=== PATIENT | male | born 1990 | race Caucasian/White ===

== ENCOUNTER 2018-05-08 16:16 | Emergency (ER) | payer OTHER ==
[2018-05-08 16:32] VITALS: BP 134/79
--- NOTE | 2018-05-08 16:53 | ED Physician Documentation ---
PD HPI LOWER EXT INJURY - Stated complaint Stated Complaint: HIP PX - Chief complaint Chief Complaint: Ext Problem - History obtained from History obtained from: Patient - History of Present Illness PD HPI LOW EXT INJURY LOCATION: Other (The last 3-6 months he has had pain of the right lateral hip that is worse with certain motions and after exercising. It is never debilitating. He denies weakness, numbness, or tingling in the legs or saddle area.) Review of Systems Constitutional: denies: Fever, Chills Nose: denies: Rhinorrhea / runny nose, Congestion Cardiac: denies: Chest pain / pressure, Palpitations Respiratory: denies: Dyspnea, Cough PD PAST MEDICAL HISTORY - Past Medical History Past Medical History: Yes HEENT: Chronic vision loss - Past Surgical History Past Surgical History: Yes - Present Medications Home Medications: Ambulatory Orders Medication Instructions Recorded Confirmed No Known Home Medications [No 05/08/18 05/08/18 Known Home Medications] - Allergies Allergies/Adverse Reactions: Allergies Allergy/AdvReac Type Severity Reaction Status Date / Time No Known Drug Allergies Allergy Verified 05/08/18 16:32 - Social History Does the pt smoke?: No Smoking Status: Never smoker Does the pt drink ETOH?: No Does the pt have substance abuse?: No - Immunizations Immunizations are current?: Yes - POLST Patient has POLST: No PD ED PE NORMAL - Vitals Vital signs reviewed: Yes - General General: Alert and oriented X 3, No acute distress - Extremities Extremities: Other (He is tender over the iliotibial band on the right side and also lumbar area. He has no pain with internal or external rotation of the hip but does have pain with iliotibial band stretching maneuvers. The patient has equal and normal Achilles and patellar reflexes bilaterally. Normal sensation in all areas of the legs. Patient denies saddle anesthesia. Normal strength in flexion-extension at the ankles, knees, and flexion of the hips.) - Neuro Neuro: Alert and oriented X 3, Normal speech Results - Vitals Vitals: Vital Signs - 24 hr 05/08/18 16:28 Temperature 36.4 C L Heart Rate 63 Respiratory 14 Rate Blood Pressure 134/79 H O2 Saturation 96 Oxygen O2 Source Room air PD MEDICAL DECISION MAKING - ED course ED course: He appears to have iliotibial band syndrome and was given stretching and conservative therapy to do and follow-up was advised. - Sepsis Event Vital Signs: Vital Signs - 24 hr 05/08/18 16:28 Temperature 36.4 C L Heart Rate 63 Respiratory 14 Rate Blood Pressure 134/79 H O2 Saturation 96 Oxygen O2 Source Room air Departure - Departure Disposition: 01 Home, Self Care Clinical Impression: Iliotibial band syndrome of right side Condition: Good Record reviewed to determine appropriate education?: Yes Instructions: Iliotibial Band Stretch, IT Band Syndrome Tx Comments: Follow-up with your physician in a week if not better with the stretches as shown. Ibuprofen as needed for pain.
== END 2018-05-08 16:54 | disposition home or self-care (01) ==
LOC: ED 16:16
DX: M76.31 Iliotibial band syndrome, right leg (principal)
CPT/HCPCS: 99282

== ENCOUNTER 2018-12-03 22:00 | Emergency (ER) | payer OTHER ==
--- NOTE | 2018-12-03 23:56 | ED Physician Documentation ---
PD HPI SKIN - Stated complaint Stated Complaint: RASH - Chief complaint Chief Complaint: Wound - History obtained from History obtained from: Patient - History of Present Illness Timing - onset: How many weeks ago (1) Location: Chest, Abdomen, Back, RUE, LUE Quality / character: Itchy Improved by: No: Benadryl (no noticeably improvement with benadryl) Contributing factors: Unknown Recently seen: Not recently seen - Additional information Additional information: c/o one week of pruritic rash, left upper back, BUE (proximal) PD PAST MEDICAL HISTORY - Past Medical History Past Medical History: Yes HEENT: Chronic vision loss - Past Surgical History Past Surgical History: Yes - Present Medications Home Medications: Ambulatory Orders Medication Instructions Recorded Confirmed Triamcinolone 0.1% Oint [Kenalog 1 film TOP BID #1 tube 12/04/18 0.1% Oint] predniSONE [Prednisone] 40 mg PO DAILY 3 Days #6 tablet 12/04/18 - Allergies Allergies/Adverse Reactions: Allergies Allergy/AdvReac Type Severity Reaction Status Date / Time No Known Drug Allergies Allergy Verified 12/03/18 22:23 - Social History Does the pt smoke?: No Smoking Status: Never smoker Does the pt drink ETOH?: No Does the pt have substance abuse?: No - Immunizations Immunizations are current?: Yes - POLST Patient has POLST: No PD ED PE NORMAL - Vitals Vital signs reviewed: Yes - General General: Alert and oriented X 3, No acute distress, Well developed/nourished - Respiratory Respiratory: No respiratory distress, Clear bilaterally PD ED PE EXPANDED - Derm Derm: Rash (papular, erythematous exanthem with discrete papules, some of which appear scaly. papules are in clusters/crops, left posterior shoulder/left upper back, right and left arms (proximal upper arm), bilateral abdominal flanks) Results - Vitals Vitals: Vital Signs - 24 hr 12/04/18 00:15 Temperature 36.5 C Heart Rate 48 L Respiratory 14 Rate Blood Pressure 178/97 H O2 Saturation 100 Oxygen O2 Source Room air PD MEDICAL DECISION MAKING - ED course Complexity details: considered differential, d/w patient Departure - Departure Disposition: 01 Home, Self Care Clinical Impression: Rash Condition: Good Instructions: ED Dermatitis Non Specific Rash Prescriptions: predniSONE [Prednisone] 40 mg PO DAILY 3 Days #6 tablet Triamcinolone 0.1% Oint [Kenalog 0.1% Oint] 1 film TOP BID #1 tube Discharge Date/Time: 12/04/18 00:21
[2018-12-04] MEDS ORDERED: predniSONE 20 MG TABLET PO STA (00:09)
[2018-12-04 00:17] VITALS: BP 178/97
== END 2018-12-04 00:21 | disposition home or self-care (01) ==
LOC: ED 22:00
DX: R21 Rash and other nonspecific skin eruption (principal)
CPT/HCPCS: 99283; J7512

== ENCOUNTER 2018-12-18 08:45 | Emergency (ER) | payer OTHER ==
[2018-12-18 08:57] VITALS: BP 143/59
[2018-12-18] MEDS ORDERED: IBUPROFEN 800 MG TABLET PO STA (09:06)
--- NOTE | 2018-12-18 09:46 | ED Physician Documentation ---
PD HPI URI - Stated complaint Stated Complaint: FLU LIKE SX - Chief complaint Chief Complaint: General - History obtained from History obtained from: Patient - History of Present Illness Timing - onset: How many days ago (2) Timing duration: Days (2) Timing details: Gradual onset Associated symptoms: Nasal congestion, Sore throat, Dry cough - Additional information Additional information: The patient is a 28-year-old [employer] male who presents with upper respiratory symptoms including sore throat, congestion, myalgias, cough, headache, and possible fever. His symptoms started 2 days ago and have been gradually increasing in severity. He denies abdominal pain, vomiting or diarrhea. Review of Systems Constitutional: reports: Fever (possibly), Myalgias Eyes: denies: Irritation Ears: denies: Ear pain Nose: reports: Congestion Throat: reports: Sore throat Cardiac: denies: Chest pain / pressure Respiratory: reports: Cough. denies: Dyspnea GI: denies: Abdominal Pain, Vomiting, Diarrhea Skin: denies: Rash Musculoskeletal: denies: Extremity swelling Neurologic: reports: Headache. denies: Focal weakness, Numbness PD PAST MEDICAL HISTORY - Past Medical History Past Medical History: Yes Endocrine/Autoimmune: None HEENT: Chronic vision loss - Past Surgical History Past Surgical History: Yes - Present Medications Home Medications: Ambulatory Orders Medication Instructions Recorded Confirmed Ibuprofen 800 mg PO TID PRN #30 tablet 12/18/18 - Allergies Allergies/Adverse Reactions: Allergies Allergy/AdvReac Type Severity Reaction Status Date / Time No Known Drug Allergies Allergy Verified 12/03/18 22:23 - Social History Does the pt smoke?: No Smoking Status: Never smoker Does the pt drink ETOH?: No Does the pt have substance abuse?: No - Immunizations Immunizations are current?: Yes - POLST Patient has POLST: No PD ED PE NORMAL - Vitals Vital signs reviewed: Yes (Borderline systolic hypertension initially.) - General General: Alert and oriented X 3, Well developed/nourished - HEENT HEENT: Atraumatic, Ears normal, Pharynx benign - Neck Neck: Supple, no meningeal sign, Other (Mildly enlarged anterior cervical nodes bilaterally.) - Cardiac Cardiac: RRR, No murmur - Respiratory Respiratory: No respiratory distress, Clear bilaterally - Abdomen Abdomen: Soft, Non tender - Back Back: No CVA TTP - Derm Derm: No rash - Extremities Extremities: No edema, No calf tenderness / cord - Neuro Neuro: Alert and oriented X 3, No motor deficit, Normal speech Results - Vitals Vitals: Vital Signs - 24 hr 12/18/18 08:53 Temperature 36.8 C Heart Rate 63 Respiratory 16 Rate Blood Pressure 143/59 H O2 Saturation 100 Oxygen O2 Source Room air - Labs Labs: Laboratory Tests 12/18/18 09:15 Influenza A (Rapid) Negative Influenza B (Rapid) Negative PD MEDICAL DECISION MAKING - ED course Complexity details: reviewed results, re-evaluated patient, considered differential, d/w patient ED course: HThe patient's presentation is most consistent with viral upper respiratory infection. His clinical presentation does not suggest meningitis, pneumonitis, otitis media, or acute pharyngitis. Influenza swab is negative. Treatment in the emergency department included administration of ibuprofen, 800 mg orally. I discussed with him the expected course of illness, symptomatic treatment and outpatient follow-up, as well as potentially worrisome signs or symptoms that should prompt reevaluation in the emergency department. Departure - Departure Disposition: 01 Home, Self Care Clinical Impression: Viral URI Condition: Stable Instructions: ED URI [facility] Prescriptions: Ibuprofen 800 mg PO TID PRN #30 tablet PRN Reason: Pain Comments: Your symptoms are most consistent with a viral upper respiratory infection. Antibiotics are not clinically indicated for this type of viral infection. Treatment should be geared toward managing symptoms: Drink plenty of fluids. Use Tylenol or ibuprofen as needed for fever or discomfort. Wash your hands frequently, and cover your cough. Follow up with your primary physician, or return to the emergency department, if not improving within 1-2 weeks. Return to the emergency department if you develop increasing difficulty breathing, or otherwise worsening symptoms. Forms: Activity restrictions
== END 2018-12-18 10:10 | disposition home or self-care (01) ==
LOC: ED 08:45
DX: J06.9 Acute upper respiratory infection, unspecified (principal); B97.89 Other viral agents as the cause of diseases classified elsewhere
CPT/HCPCS: 87275; 87276; 99283; A9270